=== PATIENT | male | born 1960 | race Two or more races ===

== ENCOUNTER 2024-07-04 05:58 | Inpatient (IN) | payer BC, MEDICARE, SELFPAY ==
[2024-07-04] VITALS (17 sets, daily range): BP systolic 106–145; BP diastolic 67–98; PULSE 97; O2SAT 96; BMI 21.6
[2024-07-04] MEDS: TYLENOL 1000 MG PO ×4 (06:40→23:08)
[2024-07-04] MEDS: NORMOSOL-R/PLASMALYTE-A 1000 IV ×3 (06:40→21:15)
[2024-07-04] MEDS: CELEBREX 200 MG PO (06:40)
[2024-07-04] MEDS: LYRICA 150 MG PO (06:40)
[2024-07-04] MEDS: METHOCARBAMOL 750 MG PO (06:41)
[2024-07-04] MEDS: DILAUDID 0.5 MG IV ×2 (09:38→10:02)
[2024-07-04] MEDS: DILAUDID 0.25 MG IV ×2 (09:50→10:19)
[2024-07-04] MEDS: TYLENOL PO ×2 (11:18→11:23)
[2024-07-04] MEDS: ZETIA 10 MG PO (11:18)
[2024-07-04] MEDS: PROTONIX 20 MG PO (11:18)
[2024-07-04] MEDS: ULTRAM 50 MG PO ×3 (11:19→23:10)
--- NOTE | 2024-07-04 11:59 | PTCARENOTE ---
pt transferred from PACU aox3 c/o 07/02 neck pain (see MAR). cervical collar in place. LCTA B/L on RA. abd soft nt. +bsx4. Regular diet, good appetite. cont b&B No edema +pp. tegaderm over gauze dressing right anterior neck CDI, skin otherwise
intact. CB in reach instructed to use.
--- NOTE | 2024-07-04 12:13 | W.PN.UPDATE ---
Update Note
Progress Note Update
Cervical stenosis s/p C3-C6 ACDF w/ Cintron 07/04/24
DVT prophylaxis - b/l SCDs/TEDs
HTN - + parameters - monitor BP
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
Aneurysm of ascending aorta, monitored serially - ensure adequate BP control
GERD - continue PPI therapy
Fibromyalgia - monitor pain and adjust pain meds as needed
HLD
Nonischemic CM, pEF
PFO, status post closure 02/2024
Mild TR
Crohn�s disease
Migraines
Periodic limb mvmt disorder
Bilateral CTS
Depression
Lyme disease
ED
[2024-07-04] MEDS: ANCEF 5 IV ×2 (15:12→23:10)
[2024-07-04] MEDS: COLACE 100 MG PO (20:07)
[2024-07-04] MEDS: SENOKOT 17.2 MG PO (20:07)
[2024-07-04] MEDS: LYRICA 75 MG PO (20:07)
[2024-07-04] MEDS: TENORMIN 25 MG PO (21:16)
[2024-07-04] MEDS: LIPITOR 80 MG PO (21:16)
[2024-07-05 04:38] VITALS: BP 125/77
[2024-07-05] MEDS: NORMOSOL-R/PLASMALYTE-A 1000 IV (06:27)
[2024-07-05] MEDS: TYLENOL 1000 MG PO (06:28)
[2024-07-05] MEDS: ULTRAM 50 MG PO (06:28)
[2024-07-05 07:12] LABS: Hematocrit 39.4 % (39.0-52.0); Hemoglobin 13.8 g/dL (13.0-18.0)
--- NOTE | 2024-07-05 07:13 | W.DS.TRANS ---
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
-
Discharge Instructions:
Sleep Apnea Risk Intermediate
Discharge Diagnosis/Procedures Cervical stenosis s/p C3-C6 ACDF w/ Dr Cintron
25
Diet Regular
Activity As tolerated
Additional Activity No heavy lifting >10 lbs
Driving Restrictions Not until seen by your Dr
Bathing Restrictions OK to shower in 4 days.
Instructions:
Stand-Alone Forms: [facility] Cervical D/C Inst.
Changes to Home Medications: No
Discharge Medications:
DC Medications w/original date entered in [employer]
aspirin 81 mg tablet,delayed release 81 mg PO DAILY 06/28/24
atenolol 25 mg tablet 25 mg PO HS 06/28/24
atorvastatin 80 mg tablet 80 mg PO HS 06/28/24
clopidogrel 75 mg tablet (Plavix) 75 mg PO DAILY 06/28/24
ezetimibe 10 mg tablet (Zetia) 10 mg PO DAILY 06/28/24
multivitamin 1 tab PO DAILY 06/28/24
pantoprazole 20 mg tablet,delayed release 20 mg PO DAILY 06/28/24
sildenafil 100 mg tablet 100 mg PO DAILY PRN ED 06/28/24
acetaminophen 325 mg tablet (Tylenol) 650 mg PO Q4H PRN pain 07/04/24
Home Medication Changes
Pending Results: No
--- NOTE | 2024-07-05 07:13 | W.PN.SP ---
Today's Communication / Plan
-
s/p acdf for myelopathy
PT
D/c today
Subjective / Objective
Subjective Data
PT doing well
Denies weakness
Sore throat
No problem breathing
Objective Data
Vital Signs
Temp Pulse Resp BP Pulse Ox
98.5 F 71 19 125/77 98
07/05/24 04:38 07/05/24 04:38 07/05/24 04:38 07/05/24 04:38 07/05/24 04:38
Intake and Output
07/04/24 07/05/24 07/06/24
06:59 06:59 06:59
Intake Total 2300 / 2300
Balance 2300 / 2300
Intake:
Oral fluids 900 / 900
IV fluids (Total) 1400 / 1400
Normosal 200 / 200
Other:
Number of approximated SMALL 1
amounts of urine
Number of approximated MODERATE 2
amounts of urine
Number of approximated LARGE 1
amounts of urine
Lab Data
07/05/24 06:54
Physical Exam
-
Moving both UE good strength
[2024-07-05 07:44] LABS: Blood Urea Nitrogen 11 mg/dl (9-20); Calcium 8.9 mg/dl (8.4-10.2); Carbon Dioxide 26 mmol/L (22-30); Chloride 105 mmol/L (98-107); Estimated Creatinine Clearance 106 ml/min; Glucose 111 mg/dl (70-99); Potassium 4.3 mmol/L (3.5-5.1); Sodium 137 mmol/L (135-145); eGFR > 60.00
[2024-07-05 07:50] VITALS: BP 118/79
[2024-07-05] MEDS: PROTONIX 20 MG PO (08:19)
[2024-07-05] MEDS: ZETIA 10 MG PO (08:19)
[2024-07-05] MEDS: LYRICA 75 MG PO (08:20)
[2024-07-05] MEDS: ANESTHETIC LOZENGE 1 LOZENGE PO (08:26)
[2024-07-05] MEDS: SENOKOT PO (08:27)
[2024-07-05] MEDS: COLACE PO (08:27)
[2024-07-05 09:20] VITALS: BP 135/87; PULSE 84
--- NOTE | 2024-07-05 10:04 | W.PN.ORTHO ---
Today's Communication / Plan
-
Await PT and OT recs.
D/c later today if remaining clinically stable.
Assessment
.
Distal Motor Intact: Yes
Dressing:
Clean, dry and intact.
Assessment:
Cervical stenosis s/p C3-C6 ACDF w/ [facility] 07/04/24
DVT prophylaxis - b/l SCDs/TEDs
HTN - + parameters - BPs overall stable
Non-obstructive CAD and TIA 12/2023 in setting of PFO - resume ASA and Plavix POD 5 since hemodynamically stable
Aneurysm of ascending aorta, monitored serially - ensure adequate BP control
GERD - continue PPI therapy
Fibromyalgia - pain well tolerated by POD 1
HLD
Nonischemic CM, pEF
PFO, status post closure 02/2024
Mild TR
Crohn�s disease
Migraines
Periodic limb mvmt disorder
Bilateral CTS
Depression
Lyme disease
ED
Plan
.
Surgery / Date: C3-C6 ACDF w/ [facility] 07/04/24
DVT Prophylaxis: Other (b/l SCDs/TEDS)
Activity:
Out of bed.
PT/OT
Discharge Plan: Home
Subjective
.
.:
Patient resting comfortably in his bed this AM.
Mild sore throat and dysphagia; otherwise, no significant complaints.
AM labs stable.
Eager for potential d/c today.
Vital Signs and Labs
.
Vital Signs and Labs:
Lab Results
07/05/24 06:54
07/05/24 06:54
Temp Pulse Resp BP Pulse Ox
97.5 F 68 16 118/79 97
07/05/24 07:50 07/05/24 07:50 07/05/24 07:50 07/05/24 07:50 07/05/24 07:50
Physical Exam
-
HEENT: No pallor, cyanosis, or jaundice. Throat clear.
NECK: + Cervical collar. Supple.
RESPIRATORY: Lungs clear to auscultation.
CVS: S1, S2 normal. RRR.�
ABDOMEN: Soft, non-tender. No distension.
EXTREMITIES: Able to wiggle fingers b/l. Good sign hanger/radial pulses b/l. Strength equal, no calf pain with palpation/dorsiflexion. Calves soft.
OCCUPATIONAL PHYSICIAN: AOx3. No focal deficits. casting repairer grossly intact
--- NOTE | 2024-07-05 10:15 | W.DS.TRANS ---
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
-
Discharge Instructions:
Sleep Apnea Risk Intermediate
Discharge Diagnosis/Procedures Cervical stenosis s/p C3-C6 ACDF w/ Dr Cintron
25
Diet Regular
Activity As tolerated
Additional Activity No heavy lifting >10 lbs
Driving Restrictions Not until seen by your Dr
Bathing Restrictions OK to shower in 4 days.
Instructions:
Stand-Alone Forms: [facility] Cervical D/C Inst.
Changes to Home Medications: Yes
Discharge Medications:
DC Medications w/original date entered in [employer]
aspirin 81 mg tablet,delayed release 81 mg PO DAILY 06/28/24
atenolol 25 mg tablet 25 mg PO HS 06/28/24
atorvastatin 80 mg tablet 80 mg PO HS 06/28/24
clopidogrel 75 mg tablet (Plavix) 75 mg PO DAILY 06/28/24
ezetimibe 10 mg tablet (Zetia) 10 mg PO DAILY 06/28/24
multivitamin 1 tab PO DAILY 06/28/24
pantoprazole 20 mg tablet,delayed release 20 mg PO DAILY 06/28/24
sildenafil 100 mg tablet 100 mg PO DAILY PRN ED 06/28/24
Saccharomyces boulardii 250 mg capsule (Florastor) 250 mg PO BID #14 caps 07/05/24
acetaminophen 325 mg tablet (Tylenol) 650 mg (2 x 325 mg) PO Q4HWA pain #60 tabs 07/05/24
cephalexin 500 mg capsule 500 mg PO Q6H #20 caps 07/05/24
docusate sodium 100 mg capsule 100 mg PO BID #30 caps 07/05/24
ondansetron HCl 4 mg tablet 4 mg PO Q6H PRN nausea and vomiting #30 tabs 07/05/24
oxycodone 5 mg tablet 5 - 10 mg (1 - 2 x 5 mg) PO Q6H PRN moderate-severe pain #30 tabs 07/05/24
pregabalin 75 mg capsule 75 mg PO BID neuropathic pain #15 caps 07/05/24
sennosides 8.6 mg tablet (Rosaura-mitchell) 17.2 mg (2 x 8.6 mg) PO BID PRN Constipation #30 tabs 07/05/24
Home Medication Changes
Saccharomyces boulardii 250 mg capsule (Florastor) 250 mg PO BID #14 caps 07/05/24
acetaminophen 325 mg tablet (Tylenol) 650 mg (2 x 325 mg) PO Q4HWA pain #60 tabs 07/05/24
cephalexin 500 mg capsule 500 mg PO Q6H #20 caps 07/05/24
docusate sodium 100 mg capsule 100 mg PO BID #30 caps 07/05/24
ondansetron HCl 4 mg tablet 4 mg PO Q6H PRN nausea and vomiting #30 tabs 07/05/24
oxycodone 5 mg tablet 5 - 10 mg (1 - 2 x 5 mg) PO Q6H PRN moderate-severe pain #30 tabs 07/05/24
pregabalin 75 mg capsule 75 mg PO BID neuropathic pain #15 caps 07/05/24
sennosides 8.6 mg tablet (Rosaura-mitchell) 17.2 mg (2 x 8.6 mg) PO BID PRN Constipation #30 tabs 07/05/24
Pending Results: No
--- NOTE | 2024-07-05 10:33 | CM ---
Addendum entered by Alondra Beaver 07/05/24 10:39:
IMM explained & signed. In chart
Original Note:
Patient seen at bedside with
IA completed
Case management consult completed-dispo planning
Lives with in a 2 story home, 4 steps to enter, flight to bedroom
PLOF: Independent, no device, works
Denies DME
denies insecurities
PT/OT evals - no needs
PCP: Malik Murillo
Pharmacy: [place] [facility] [place]
PLAN: Home no needs
to transport
[2024-07-05 10:40] VITALS: BP 143/85
== END 2024-07-05 11:28 | disposition home or self-care (01) | DRG 473 ==
LOC: 2 SOUTH 05:58
PROVIDERS: Physician Assistant; ADMITTING PHYSICIAN Orthopaedic Surgery Orthopaedic Surgery of the Spine; FAMILY PHYSICIAN Family Medicine
PROC: 0RB30ZZ Excision of Cervical Vertebral Disc, Open Approach (ICD-10-PCS; 2024-07-04)
PROC: 0RG20A0 Fusion of 2 or more Cervical Vertebral Joints with Interbody Fusion Device, Anterior Approach, Anterior Column, Open Approach (ICD-10-PCS; 2024-07-04)
DX: M48.02 Spinal stenosis, cervical region (principal); I25.10 Atherosclerotic heart disease of native coronary artery without angina pectoris; I71.21 Aneurysm of the ascending aorta, without rupture; K21.9 Gastro-esophageal reflux disease without esophagitis; E78.5 Hyperlipidemia, unspecified; M79.7 Fibromyalgia
CPT/HCPCS: 72020; 80048; 85014; 85018; 87070; 97116; 97162; 97166

== ENCOUNTER 2025-01-30 09:22 | Inpatient (IN) | payer BC, MEDICARE, SELFPAY ==
[2025-01-23 13:49] LABS: Hematocrit 42.0 % (39.0-52.0); Hemoglobin 14.3 g/dL (13.0-18.0); Mean Corp Hgb Conc. 34.0 g/dL (33.0-37.0); Mean Corpuscular Volume 93.1 fL (80.0-94.0); Platelet Count 266 10^3/uL (130-400); Red Cell Dist. Width 13.1 % (11.5-14.5)
[2025-01-23 14:04] VITALS: BMI 22.5
[2025-01-23 15:14] LABS: ALT (SGPT) 34 U/L (0-50); AST (SGOT) 29 U/L (17-59); Albumin 4.6 g/dl (3.5-5.0); Alkaline Phosphatase 57 U/L (38-126); Blood Urea Nitrogen 18 mg/dl (9-20); Calcium 9.6 mg/dl (8.4-10.2); Carbon Dioxide 28 mmol/L (22-30); Chloride 102 mmol/L (98-107); Estimated Creatinine Clearance 94 ml/min; Glucose 89 mg/dl (70-99); Potassium 4.5 mmol/L (3.5-5.1); Sodium 137 mmol/L (135-145); Total Protein 6.6 g/dl (6.3-8.2); eGFR > 60.00
[2025-01-30] VITALS (11 sets, daily range): BP systolic 102–125; BP diastolic 71–90; PULSE 97; BMI 22.5
[2025-01-30] MEDS: CELEBREX 200 MG PO (10:04)
[2025-01-30] MEDS: TYLENOL 1000 MG PO ×3 (10:04→22:30)
[2025-01-30] MEDS: METHOCARBAMOL 1500 MG PO (10:04)
[2025-01-30] MEDS: LYRICA 150 MG PO (10:04)
[2025-01-30] MEDS: NORMOSOL-R/PLASMALYTE-A 1000 IV ×2 (10:37→14:42)
[2025-01-30] MEDS: DILAUDID 0.25 MG IV (12:51)
[2025-01-30] MEDS: DILAUDID 0.5 MG IV ×2 (13:04→13:23)
--- NOTE | 2025-01-30 14:29 | PTCARENOTE ---
Pt arrived to 2S in bed. Full assessment completed. L back DSG C/D/I. B/L upper and lower extremity NV assessment WDL. IVF infusing per order. Per EHR TRAINER per Ones[employer] FLORES pt does not require back brace. Pt instructed to ring for assistance getting
OOB, verbalized understanding. Bed locked and in the lowest position, safety maintained. Oriented to room and call solorzano.
[2025-01-30] MEDS: ULTRAM 50 MG PO ×2 (14:44→19:50)
[2025-01-30] MEDS: SENOKOT 17.2 MG PO ×2 (14:44→19:50)
[2025-01-30] MEDS: COLACE 100 MG PO ×2 (14:44→19:50)
--- NOTE | 2025-01-30 14:51 | W.PN.UPDATE ---
Update Note
Progress Note Update
Lumbar stenosis w/ neurogenic claudication s/p L3-L4 extreme lateral interbody fusion w/ Dr Cintron 01/30/25
DVT prophylaxis - b/l SCDs/TEDS
HTN - + parameters - monitor BP
NICM, recovered EF - reduce hourly IVF rate to prevent fluid overload
- Monitor I&Os
PFO, status post PFO closure w/ septal occluder
TIA secondary to the above
CAD w/ mild LAD disease
- Resume ASA and Plavix POD 5
GERD - continue PPI therapy
Crohn's disease - minimize NSAIDs
HLD
Mild TR
Periodic movement limb d/o
Cervical stenosis
ED
Depression
H/o Lymes disease
[2025-01-30] MEDS: PROTONIX PO (15:00)
[2025-01-30] MEDS: ZETIA PO (15:01)
[2025-01-30] MEDS: ANCEF 5 IV (19:50)
[2025-01-30] MEDS: TENORMIN 25 MG PO (22:30)
[2025-01-30] MEDS: LIPITOR 80 MG PO (22:30)
[2025-01-30] MEDS: LYRICA 75 MG PO (22:31)
[2025-01-31 00:20] VITALS: BP 119/77
[2025-01-31] MEDS: ULTRAM 50 MG PO ×2 (02:22→09:12)
[2025-01-31 03:20] VITALS: BP 120/76
[2025-01-31] MEDS: NORMOSOL-R/PLASMALYTE-A 1000 IV (03:58)
[2025-01-31] MEDS: ANCEF 5 IV (03:58)
[2025-01-31] MEDS: TYLENOL 1000 MG PO ×2 (03:59→10:30)
[2025-01-31 06:46] LABS: Hematocrit 39.4 % (39.0-52.0); Hemoglobin 13.0 g/dL (13.0-18.0)
[2025-01-31 06:57] LABS: Blood Urea Nitrogen 12 mg/dl (9-20); Calcium 8.8 mg/dl (8.4-10.2); Carbon Dioxide 24 mmol/L (22-30); Chloride 108 mmol/L (98-107); Estimated Creatinine Clearance > 125 ml/min; Glucose 111 mg/dl (70-99); Potassium 4.2 mmol/L (3.5-5.1); Sodium 136 mmol/L (135-145); eGFR > 60.00
[2025-01-31 07:20] VITALS: BP 115/69
[2025-01-31] MEDS: SENOKOT 17.2 MG PO (09:19)
[2025-01-31] MEDS: COLACE 100 MG PO (09:19)
[2025-01-31] MEDS: PROTONIX 20 MG PO (09:19)
[2025-01-31] MEDS: ZETIA 10 MG PO (09:19)
--- NOTE | 2025-01-31 09:49 | W.PN.ORTHO ---
Today's Communication / Plan
-
Await PT and OT recs.
D/c later today if remaining clinically stable.
Assessment
.
Distal Motor Intact: Yes
Dressing:
Clean, dry and intact.
Assessment:
Lumbar stenosis w/ neurogenic claudication s/p L3-L4 extreme lateral interbody fusion w/ Dr Cintron 01/30/25
DVT prophylaxis - b/l SCDs/TEDS
HTN - + parameters - BPs overall stable
NICM, recovered EF - reduced hourly IVF rate to prevent fluid overload
- I&Os stable
PFO, status post PFO closure w/ septal occluder
TIA secondary to the above
CAD w/ mild LAD disease
- Resume ASA and Plavix POD 5
GERD - continue PPI therapy
Crohn's disease - minimize NSAIDs
- Colace ONLY initially for post-op bowel regimen
HLD
Mild TR
Periodic movement limb d/o
Cervical stenosis
ED
Depression
H/o Lymes disease
Spoke to patient extensively re: pain mgmt post-procedure (particularly Oxycodone vs Tramadol q6hprn). Per his request, would like Tramadol to avoid oversedation. Will continue with Tylenol and Lyrica taper. Pt aware to call Dr. Cintron's office for
further pain med recs should current pain med regimen be ineffective.
Plan
.
Surgery / Date: L3-L4 extreme lateral interbody fusion Dr Cintron 01/30
DVT Prophylaxis: Other (b/l SCDs/TEDs )
Activity:
Out of bed.
PT/OT
Discharge Plan: Home
Subjective
.
.:
Patient resting comfortably in his bed.
Low back pain tolerable w/ current pain meds.
Denies any new significant complaints.
AM labs stable. Eager for potential d/c today.
Vital Signs and Labs
.
Vital Signs and Labs:
Lab Results
01/31/25 05:47
01/31/25 05:47
Temp Pulse Resp BP Pulse Ox
97.7 F 72 16 115/69 98
01/31/25 07:20 01/31/25 07:20 01/31/25 07:20 01/31/25 07:20 01/31/25 07:20
Physical Exam
-
HEENT: No pallor, cyanosis, or jaundice. Throat clear.
NECK: Supple. No JVD.
RESPIRATORY: Lungs clear to auscultation.
CVS: S1, S2 normal. RRR.�
ABDOMEN: Soft, non-tender. No distension.
EXTREMITIES: Strength equal, no calf pain with palpation/dorsiflexion. Calves soft.
CLINICAL CYTOPATHOLOGIST: AOx3. No focal deficits. child development consultant grossly intact
--- NOTE | 2025-01-31 10:03 | W.DS.TRANS ---
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
-
Discharge Instructions:
Sleep Apnea Risk Intermediate
Discharge Diagnosis/Procedures Lumbar stenosis w/ neurogenic claudication s/p
L3-L4 extreme lateral interbody fusion w/ Dr Cintron
01/30/25
Diet Regular
Additional Diets Adequate hydration and minimize opioids to
prevent low blood pressure/dizziness.
Activity As tolerated
Additional Activity No heavy lifting >10 lbs
Driving Restrictions Not until seen by your Dr
Bathing Restrictions OK to shower in 4 days
Instructions:
Stand-Alone Forms: [facility]ron Lumbar D/C Inst.
Changes to Home Medications: Yes
Discharge Medications:
DC Medications w/original date entered in [email or web address]
atenolol 25 mg tablet 25 mg PO HS Blood Pressure 06/28/24
atorvastatin 80 mg tablet 80 mg PO HS High Cholesterol 06/28/24
ezetimibe 10 mg tablet (Zetia) 10 mg PO DAILY High Cholesterol 06/28/24
multivitamin 1 tab PO WEEKLY Supplement 06/28/24
pantoprazole 20 mg tablet,delayed release 20 mg PO DAILY Gastrointestinal Issue 06/28/24
sildenafil 100 mg tablet 100 mg PO DAILY PRN ED 06/28/24
amoxicillin 500 mg tablet 2,000 mg PO PRE PROCEDURE Infection 01/25/25
aspirin 81 mg tablet,delayed release 81 mg PO DAILY Blood Clot Prevention/Tx 01/25/25
Held on 01/31/25. Instructions: Resume on 02/04/25.
clopidogrel 75 mg tablet (Plavix) 75 mg PO DAILY Blood Clot Prevention/Tx 01/25/25
Held on 01/31/25. Instructions: Resume on 02/04/25.
Saccharomyces boulardii 250 mg capsule (Florastor) 250 mg PO BID #10 caps 01/31/25
acetaminophen 500 mg tablet (Tylenol Extra Strength) 1,000 mg (2 x 500 mg) PO Q6H #60 tabs 01/31/25
cephalexin 500 mg capsule 500 mg PO Q6H #20 caps 01/31/25
docusate sodium 100 mg capsule 100 mg PO BID #30 caps 01/31/25
ondansetron HCl 4 mg tablet 4 mg PO Q6H PRN nausea and vomiting #30 tabs 01/31/25
pregabalin 75 mg capsule 75 mg PO Q12H neuropathic pain #15 caps 01/31/25
sennosides 8.6 mg tablet (Rosaura-mitchell) 17.2 mg (2 x 8.6 mg) PO BID PRN constipation #30 tabs 01/31/25
tramadol 50 mg tablet 50 - 100 mg (1 - 2 x 50 mg) PO Q6H PRN moderate-severe pain #30 tabs 01/31/25
Home Medication Changes
Saccharomyces boulardii 250 mg capsule (Florastor) 250 mg PO BID #10 caps 01/31/25
acetaminophen 500 mg tablet (Tylenol Extra Strength) 1,000 mg (2 x 500 mg) PO Q6H #60 tabs 01/31/25
cephalexin 500 mg capsule 500 mg PO Q6H #20 caps 01/31/25
docusate sodium 100 mg capsule 100 mg PO BID #30 caps 01/31/25
ondansetron HCl 4 mg tablet 4 mg PO Q6H PRN nausea and vomiting #30 tabs 01/31/25
pregabalin 75 mg capsule 75 mg PO Q12H neuropathic pain #15 caps 01/31/25
sennosides 8.6 mg tablet (Rosaura-mitchell) 17.2 mg (2 x 8.6 mg) PO BID PRN constipation #30 tabs 01/31/25
tramadol 50 mg tablet 50 - 100 mg (1 - 2 x 50 mg) PO Q6H PRN moderate-severe pain #30 tabs 01/31/25
Pending Results: No
[2025-01-31 10:08] VITALS: BP 132/81; PULSE 79; O2SAT 97
[2025-01-31] MEDS: LYRICA 75 MG PO (10:30)
--- NOTE | 2025-01-31 10:51 | CM ---
CM reviewed medical records. Plan for patient to return home with no further needs.
PLAN: Home no needs.
[2025-01-31 10:55] VITALS: BP 129/75
== END 2025-01-31 12:40 | disposition home or self-care (01) | DRG 451 ==
LOC: 2 SOUTH 09:22
PROVIDERS: Physician Assistant; ADMITTING PHYSICIAN Orthopaedic Surgery Orthopaedic Surgery of the Spine; FAMILY PHYSICIAN Family Medicine
PROC: 0SG00A0 Fusion of Lumbar Vertebral Joint with Interbody Fusion Device, Anterior Approach, Anterior Column, Open Approach (ICD-10-PCS; 2025-01-30)
DX: M48.062 Spinal stenosis, lumbar region with neurogenic claudication (principal); I42.8 Other cardiomyopathies; K50.90 Crohn's disease, unspecified, without complications; M41.9 Scoliosis, unspecified; I10 Essential (primary) hypertension; I25.10 Atherosclerotic heart disease of native coronary artery without angina pectoris; Z86.73 Personal history of transient ischemic attack (TIA), and cerebral infarction without residual deficits; Z87.74 Personal history of (corrected) congenital malformations of heart and circulatory system; E78.5 Hyperlipidemia, unspecified; K21.9 Gastro-esophageal reflux disease without esophagitis
CPT/HCPCS: 36415; 72100; 76000; 80048; 80053; 85014; 85018; 85027; 86850; 86900; 86901; 87070; 93005; 97116; 97162; 97167